=== PATIENT | female | born 1995 | race Caucasian/White ===

== ENCOUNTER 2021-02-09 10:54 | Day surgery (SDC) | payer SELFPAY, OTHER ==
[2021-02-05 13:06] LABS: Hematocrit 40.1 % (37-47); Hemoglobin 13.1 g/dL (12.0-15.0); Mean Corp Hgb Conc 32.7 g/dL (32-36); Mean Corpuscular Hgb 28.2 pg (27.0-32.0); Mean Corpuscular Volume 86.4 fL (81-99); Mean Platelet Vol. 9.4 fl (6.2-12.0); Platelet Count 278 K/mm3 (150-450); RBC Distribution Width CV 12.9 % (11.6-14.6); RBC Distribution Width SD 40.5 fl (35.1-43.9); Red Blood Count 4.64 M/mm3 (4.2-5.4); White Blood Count 4.8 K/mm3 (4.4-11.0)
[2021-02-05 13:17] LABS: Partial Thromboplast Time 29.8 Seconds (24.1-36.2); Prothrombin Time (Protime)PT. 12.9 SECONDS (11.7-14.9)
[2021-02-05 13:22] LABS: Internal QC Validated? YES +Cl - CLEAR BKGD; Pregnancy, Serum, hCG Quali. NEGATIVE Negative
--- NOTE | 2021-02-08 20:42 | PCM.HP.BLA ---
History and Physical Date of Admission: 02/09/21 Surgical History and Physical Michelle Bedoya, a 25 year old female 6 0 1 0 6, presents for Bilateral Laparoscopic Salpigectomy on February 09, 2021 at 7:30. -- Desires Permanent Sterilization -- Michelle presents for permanent sterilization. She is a 25yo G 7, P 6, AB 1 with hx of 6 's. Pt sts they have tried several natural methods of preventing with no success. She does not want OCP's or LARCs. MEDICATIONS HISTORY: ALLERGIES: No Known Drug Allergies Infections - Chicken pox childhood Illnesses - no serious past illnesses Accidents - None Hospitalizations - Childbirth and see surgery Review of Systems: GENERAL - Denies fever, or chills SKIN - Denies skin changes EYES - Denies visual changes EARS - Denies difficulty hearing NOSE - Denies nasal congestion or bleeding MOUTH - Denies sore throat or difficulty swallowing NECK - Denies pain or swelling RESPIRATORY - Denies shortness of breath or wheezing CARDIOVASCULAR - Denies palpitations or chest pain GASTROINTESTINAL - Denies nausea, vomiting, diarrhea, constipation GENITOURINARY - Denies dysuria, frequency of urination, incontinence of urine MUSCULOSKELETAL - Denies joint or muscle pain NEUROLOGICAL - Denies localized numbness or weakness PSYCHIATRIC - Denies depression or anxiety ENDOCRINE - Denies heat or cold intolerance, weight loss or gain HEMATO-IMMUNOLOGIC - Denies excesive bleeding with cuts SOCIAL HISTORY: Alcohol Use - denies drinking Smoking - denies smoking Diet - balanced Diet Lifestyle - moderate stress lifestyle and Exercise - active work Seat Belt Use - occasional Employer - Unemployed Job Description - Housewife Illicit Drug Use - denies use of street drugs Sexual Activity - Spouse-Sig Other Name - Harlan Bedoya Spouse-Sig Other Occupation - [employer] Children Name(s) - 6 children Control - wants terminal press operator or permanent control FAMILY HISTORY: MENSTRUAL HISTORY: LMP Known?- YesAmount/Duration - 4 days, Regularity - Regular, Frequency - monthly days, LMP - 01/29/21, Age Onset Menarche - 10 PAST PREGNANCIES: Total Pregnancies - 7; Full Term Pregnancies - 6; Premature - 0; Abortions, Induced - 0; Abortions, Spontaneous - 1; Ectopics - 0; Multiple Births - 0; Living Children - 6 SURGICAL HISTORY: 1. none PHYSICAL EXAM BP- 122/80 Sitting, Right arm, regular cuff Weight- 198.03845 lbs Height- 65 inch BMI:33.0 CONSTITUTIONAL - NAD, well nourished, and well developed SKIN - No rash, lesions, or ulcers HEENT - Normocephalic, PERRLA, EOMI NECK - No nodes, no nuchal rigidity and thyroid normal size and texture LYMPH NODES - Palpation of lymph nodes in neck and groins within normal limits LUNGS - CTA x2 without wheezes, crackles or rales CARDIAC - Regular rate and rhythm without rubs, murmurs, or gallops ABDOMEN - Without hepatosplenomegaly, distention, masses, rebound, or guarding; normal bowel sounds; no hernias EXTREMITIES - No edema or calf tenderness NEUROLOGICAL - Cranial nerves II-XII grossly intact PSYCHIATRIC - A and O to time, place, person, mood and affect External Genitial Vagina - non-tender without lesions Urethra/Urethral Meatus - non-tender Bladder - non-tender Vagina - vaginal de la torre are pink and moist without loss of rugae and no evidence of atropy Cervix - without cervical motion tenderness and has normal size and features without evident lesions Uterus - multiparous size 6 cm & wt 75-125 g Adnexa - clear without massess or tenderness ASSESSMENT/PLAN: Desires Permanent Sterilization. Plan L/S bilateral salpingectomy. Discussed RBAs and all questions answered.
[2021-02-09] VITALS (9 sets, daily range): BP systolic 101–114; BP diastolic 66–80; PULSE 60–78; RESP 14–16; TEMP 36.5–37.1; O2SAT 97–100; BMI 32.3
[2021-02-09] MEDS: Lactated Ringers 1,000 ML 100 ML IV (11:15)
[2021-02-09 11:23] LABS: Internal QC Validated? YES +Cl - CLEAR BKGD; Pregnancy, Urine Negative Negative
--- NOTE | 2021-02-09 11:53 | OP.PCM_ITS ---
Report of Operation Date of Procedure: 02/09/21 Pre-Operative Diagnosis: Desires Permanent Sterilization Post-Operative Diagnosis: Desires Permanent Sterilization Surgery/Procedure Performed:: Laparoscopic Bilateral Salpingectomy Description of Surgical Findings:: Normal pelvis. Cervix which protrudes within 2 cm of the introitus which would make vaginal hysterectomy feasible if this were ever necessary. Surgeon: Malcolm Cuadra licensed psychologist manager: Roxi Velazquez Type of Anesthesia: General (Endotracheal) Anesthesiologist: Bam Santana Specimen's removed: Bilateral fallopian tubes Estimated Blood Loss (mL): Minimal Fluids Replaced: Crystalloid Description of Procedure: Surgeon: Malcolm Cuadra MD, FACOG Indications: This is a 25 year old patient who has the above diagnosis. She has considered sterilization for quite some time. She is aware of the permanent nature of the procedure, the failure rate of 1-2%, and the availability of other nonpermanent control options. All questions were answered to consider the patient well-informed. Procedure: The patient was taken to the operating room where after induction of general anesthesia, she was placed in the dorsolithotomy position and prepped and draped in the usual sterile fashion. The bladder was drained of approximately 100 cc of clear yellow urine with a catheter. Anterior cervix was grasped with the tenaculum. Conn cannula was placed and attention was turned toward the laparoscopic portion of the procedure. Approximately 30 cc of half percent ropivacaine was injected subumbilically, suprapubically and midway between. A 5 mm bladeless trocar was placed subumbilically and intraperitoneal placement confirmed. After CO2 insufflation was complete, a 5 mm bladeless trocar was introduced suprapubically. The above findings were noted. A 5 mm bladeless port was then placed midway between these 2 ports for tubal manipulation. Each fallopian tube was identified to its fimbriated end and an Enseal device was used to divide the mesosalpinx to the uterus. Tubes were removed through the lower 5 mm port. The peritoneal cavity and upper abdomen were examined and noted to be normal. Laparoscopic instruments with as much CO2 gas as possible were removed and incisions were closed with interrupted 4-0 Monocryl suture. Steri-Strips placed across the incision. Vaginal instruments were removed. The patient tolerated the procedure well was taken to recovery room in satisfactory condition and sponge instrument and needle counts were all reportedly correct. Estimated blood loss for the case was minimal. There were no apparent complications of the surgery. Specimens to pathology was bilateral tubes Grafts/Implants Used: None Complications None Admit VTE Documentation VTE Present on Admission: Yes VTE Mechan Device Prophylaxis: SCD's
--- NOTE | 2021-02-09 11:56 | DCINST_ITS ---
Discharge Instructions Diet Discharge Diet: No restrictions (Increase fluid intake for the next 48 hours.) Activity Discharge Activity: May Shower and May Take a Tub Bath May resume sexual activity in: 1-2 weeks Lifting Restrictions: Less than 25 pounds for 2 weeks Additional Activity Instructions:: Nothing in the vagina for 1-2 weeks please; no lifting more than 20-25 lbs for 2 weeks. Use Ibuprophen 800 mg orally every 8 hours as needed for pain. Can also add Tylenol 1000 mg every 8 hours if needed for pain. If Ibuprophen and Tylenol are not effective then use the Oxycodone but keep in mind it can cause constipation issues. Drink lots of water. Call if bleeding more than a pad per hour. Steps and walking are OK. Activity is encouraged but do not over do it !! Dressing / Incision Call your doctor if your incision/area has: Continuous Slow Oozing, Sudden Increased Bleeding, Increased Pain/ Swelling, Increased Redness and Foul Smelli ng Discharge Call your doctor if you observe: Fever of 101 or Higher, Inability to urinate, Inability to have a bowel movement and Using more than 1 pad per hour Remove Dressing in: leave until fall off Additional Dressing/Incision Instructions:: Okay to shower over the Steri-Strips tapes. They are for your comfort. If they fall off its okay to replace them with Band-Aids if you desire. Follow Up Care Please Follow Up With: Malcolm Cuadra MD When: 2 to 3 weeks for a postop appointment. Test Results: Test results from this visit will be discussed in further detail at your follow-up appointment, if applicable. Discharge Plan Admission Primary Reason for Your Visit: Tubal Ligation Attending Provider: Malcolm Cuadra Primary Care Provider: Care Physician,Wendy Primary Consulting Providers: Ernie Corcoran Discharge Orders/Prescriptions Prescriptions: New oxycodone 5 mg capsule 5 mg PO Q6H PRN (Reason: pain) 7 Days Qty: 7 RF: 0 Other Ambulatory Orders: COVID 19, PCR [facility](RT COLLECT) (Routine) Timeframe: [id number] Facility: [facility] - Location: Laboratory Ordered By: Dr. Ernie Corcoran Referrals / Follow Up: Care Physician,No Primary [Primary Care Provider] - Disposition Disposition (needs filled in before D/C Order can be placed): Home, Self Care
[2021-02-09] MEDS: Cefotetan 2 GM in 0.9% NS 100 ML IV (12:12)
--- NOTE | 2021-02-09 12:20 | FALS_PTH ---
PATIENT: RENNY XAVIER LOC: [facility] [place] U#:[id number] AGE/SX: 25/F ROOM: RE02/09/[address]: Dr. Malcolm Cuadra MD : 1995 BED: DIS: 02/09/2021 SPEC #: [id number] RECD: 02/09/21 14:19 STATUS: MIKE REEllis #: [id number] CHAVEZ: 02/09/21 12:[address]: Malcolm Cuadra DEPT: SURGICAL PATHOLOGY RECD BY: Kranthi Teran ENTERED: 02/10/21 11:59 SP TYPE: FALL TUBES OTHR DR: Dr. Ernei Corcoran MD No Primary Care Phys Tissues: Fallopian tube Procedures: Surgery Specimen Level II HEADER OPERATION: Laparoscopic salpingectomy PRE-OP DIAGNOSIS: Sterilization TISSUE SUBMITTED: Bilateral fallopian tubes MICROSCOPIC DIAGNOSIS Bilateral fallopian tubes, salpingectomy: Bilateral fallopian tubes, no pathologic diagnosis. SJ:sena 02/11/2021 MICROSCOPIC DESCRIPTION Slides are reviewed. GROSS DESCRIPTION Received in fixative is one container labeled with the patient's name and designated bilateral fallopian tubes. The specimen consists of four elongated fragments of fallopian tubes ranging in size from 3 to 5 cm in length and varying in diameter from 0.5 to 0.6 cm. The fimbrial ends have a long villous appearance. No mass lesions are identified. Refrigerator Tester sections are submitted in two cassettes with each cassette containing one fallopian tube. / AM:sena 02/10/2021 TC:4 CPT: 21895 x2
[2021-02-09] MEDS: Ropivacaine 0.5% 30 ML Vial (12:29)
== END 2021-02-09 15:11 | disposition home or self-care (01) ==
LOC: SDC 10:54 → AC 10:55
PROVIDERS: Anesthesiology; Referring Provider Obstetrics & Gynecology; Visit Provider Obstetrics & Gynecology
PROC: (CPT 58661; principal; 2021-02-09 12:05)
DX: Z30.2 Encounter for sterilization (principal); Z20.822 Contact with and (suspected) exposure to COVID-19; Z87.891 Personal history of nicotine dependence
CPT/HCPCS: 00840; 58661; 36415; 81025; 84703; 85027; 85610; 85730; 86850; 86900; 86901; 87426; 88302; C9803; J7120; C1760; J2405